=== PATIENT | female | born 1980 | race Two or more races ===

== ENCOUNTER 2018-07-23 08:06 | Day surgery (SDC) | payer OTHER ==
[2018-07-13 10:37] VITALS: BMI 27.9
[2018-07-23 08:22] VITALS: TEMP 97.4
[2018-07-23] MEDS ORDERED: DEXAMETHASONE SOD PHOSPHATE/PF 10 MG/ML SDV ONE (09:34)
[2018-07-23] MEDS ORDERED: MIDAZOLAM HCL 2 MG/2 ML SINGLE DOSE VIAL ONE (09:34)
[2018-07-23] MEDS ORDERED: BUPIVACAINE HCL/PF (5 MG/ML) 30 ML VIAL IJ ONE (09:34)
[2018-07-23] MEDS ORDERED: ONDANSETRON 4 MG/2 ML VIAL ONE (10:00)
[2018-07-23] MEDS ORDERED: KETOROLAC TROMETHAMINE 30 MG/1 ML VIAL ONE (10:00)
[2018-07-23] MEDS ORDERED: DEXAMETHASONE SOD PHOSPHATE 4 MG/1 ML VIAL ONE (10:00)
[2018-07-23] MEDS ORDERED: ceFAZolin SODIUM 1 GM VIAL ONE (10:00)
[2018-07-23] MEDS ORDERED: DEXMEDETOMIDINE HCL 200 MCG/2 ML ML IVPB ONE (10:03)
[2018-07-23] MEDS ORDERED: ONDANSETRON 4 MG/2 ML VIAL IVPUSH PRN (10:36)
[2018-07-23] MEDS ORDERED: oxyCODONE HCL 5 MG TABLET PO PRN (10:36)
[2018-07-23] MEDS ORDERED: LACTATED RINGERS SOLUTION 1,000 ML IV SCH (10:45)
[2018-07-23] MEDS ORDERED: ALBUTEROL SO4 8 GM HFA INHALER IH SCH (12:00)
--- NOTE | 2018-07-23 12:04 | OP ---
Operative Note - Note: Operative Date: 07/23/18 Pre-Operative Diagnosis: Right shoulder impingement syndrome Operation: Right shoulder open: 1. Carolynn procedure. 2. Neer decompression. 3. Rotator cuff repair Post-Operative Diagnosis: Same as Pre-op Surgeon: Ricardo Mae Specifications Writer: Blaek Pappas Anesthesiologist/CATHEAD OPERATOR: Cl Graff Anesthesia: General Specimens Removed: Bone, soft tissue Estimated Blood Loss (mls): 50 Fluid Volume Replaced (mls): 800 Operative Report Dictated: Yes
--- NOTE | 2018-07-23 12:38 | SURG ---
Surgery Auto Car[employer] Driver Note Auto Car[employer] Driver: Blake Pappas PA-C Date of Service: 07/23/18 Diagnosis: Right shoulder impingement syndrome Procedure: Right shoulder open: 1. Carolynn procedure. 2. Neer decompression. 3. Rotator cuff repair I was present for the entirety of the operative procedure. For further detail, please refer to operative report. Visit type - Case Type Case Type: Scheduled - Emergency Emergency Visit: No - New patient This patient is new to me today: Yes Date on this admission: 07/23/18
[2018-07-23 13:11] VITALS: BP 105/65; PULSE 61
[2018-07-23] MEDS ORDERED: MOMETASONE FUROATE 220 MCG/IH INHALER IH SCH (22:00)
[2018-07-23] MEDS ORDERED: MONTELUKAST NA 10 MG TABLET PO SCH (22:00)
--- NOTE | 2018-07-24 07:34 | OP ---
DATE OF OPERATION: DATE OF DICTATION: 07/23/2018 SURGEON: Ricardo Mae MD EXPRESSIVE ART THERAPIST: BRIE So ([place]) PREOPERATIVE DIAGNOSIS: Right impingement syndrome with rotator cuff tear. POSTOPERATIVE DIAGNOSIS: Right impingement syndrome with rotator cuff tear. OPERATION PERFORMED: 1. Excision arthroplasty (Carolynn), right clavicle. 2. Acromioplasty. 3. Transfixion of coracoacrominal ligament. 4. Rotator cuff tear repair. ANESTHESIA: Scalene block with conscious sedation. ANTIBIOTICS GIVEN: General anesthesia. DESCRIPTION OF PROCEDURE: The patient was correctly identified and brought into the operating room. Right upper extremity was prepped and pre-draped in the routine manner with a Betadine scrub solution, wiped of alcohol, DuraPrep applied. A free drape applied. The axilla was sealed. The incision was made from the tip of the acromion to the tip of the coracoid process. Subcutaneous tissue lifted off the deltoid. The dissection was taken down to the deltoid. A flap proximally performed to enable a Holmann to be easily placed around the superior posterior aspect of the clavicle just proximal to the AC joint and another Holmann placed inferiorly to thus lift the clavicle, and a 1-cm beveled osteotomy performed with an oscillating saw excised from superolateral to inframedial opening up the subacromial space. Using a Holmann, we lifted up the deltoid in the area of the AC joint and using a peanut, dissected off the muscle off the CA ligament. The CA ligament clearly identified was transected by using a 15 blade stroking the ligament down to the exposing underlying rotator cuff. No damage to the rotator cuff. The ligament was released from the front to the back completely. With finger palpation, the subacromial space was extremely tight. The gentle retraction of the arm enabled with difficulty the finger to be passed into the subacromial space. This broke down adhesions. A blunt Holmann was placed with the tip of the Holmann on the undersurface of the acromion relieving the humeral head down. The acromion was then resected down to the actual inferior surface, and a sizeable fragment of bone resected, which opened up the subacromial space completely providing thus a complete decompression. The rotator cuff was then carefully inspected. The wounds were thoroughly lavaged. Hemostasis had been achieved with bipolar Bovie. A small tear noted in the rotator cuff. One Vicryl suture sufficed and did the trick. The muscle was approximated with No. 1 Vicryl, subcutaneous 1-0 and 2-0 Vicryl, skin 3-0 Monocryl with Steri-Strips. Sling applied. No complications. The operation went well. MD VITALIY Robles/[id number]
[2018-07-24] MEDS ORDERED: PATIENT'S OWN MEDICATION (NON-FORMULARY) (Cetirizine Hcl 10 MG) PO SCH (10:00)
== END 2018-07-23 13:15 | disposition home or self-care (01) ==
LOC: FASU 08:06
PROVIDERS: ATTEND Orthopaedic Surgery Orthopaedic Surgery of the Spine
PROC: 0LQ10ZZ Repair Right Shoulder Tendon, Open Approach (ICD-10-PCS; 2018-07-23)
PROC: 0PB90ZZ Excision of Right Clavicle, Open Approach (ICD-10-PCS; principal; 2018-07-23 11:30)
PROC: 0MN10ZZ Release Right Shoulder Bursa and Ligament, Open Approach (ICD-10-PCS; 2018-07-23 11:30)
DX: M75.41 Impingement syndrome of right shoulder (principal); M75.121 Complete rotator cuff tear or rupture of right shoulder, not specified as traumatic
CPT/HCPCS: 84703